=== PATIENT | male | born 1990 | race Caucasian/White ===

== ENCOUNTER 2019-04-17 18:51 | Emergency (ER) | payer SELFPAY ==
[2019-04-17 19:01] VITALS: BP 146/90; PULSE 96; RESP 16; TEMP 36.4; O2SAT 98
--- NOTE | 2019-04-17 19:01 | ED.GENADULT ---
HPI - General Adult General Chief complaint: Skin/Abscess/Foreign Body Stated complaint: cist lanced Time Seen by Provider: 04/17/19 19:08 Source: patient and RN notes reviewed Mode of arrival: ambulatory Limitations: no limitations History of Present Illness HPI narrative: This is a 28 years old male presents to the office for an evaluation of infected cyst. States, he has history of pilonidal cyst in past; began about 6-7years ago. He got the cyst removed completely and the he develops a new one about several months ago; where he went to ER to get it drainage; but he never follow up to get it removed completed. About a couple days ago, he noticed that his tail is getting sore/irritate when he sits or lies on his back. So, he asked his to check; she thought he might need to be drainage again. Denies history of MRSA. Related Data Allergies Allergy/AdvReac Type Severity Reaction Status Date / Time No Known Allergies Allergy Verified 04/17/19 19:06 Review of Systems Review of Systems: Narrative: CONSTITUTIONAL: Denies fever or feeling ill. CARDIOVASCULAR: Denies chest pain RESPIRATORY: Denies dyspnea GASTROINTESTINAL: Denies abdominal pain, nausea, vomiting SKIN: reports painful lesion on his tailbone MUSCULOSKELETAL: Denies tailbone injury/trauma. [facility] Social History Social History (Updated 04/17/19 @ 19:35 by MARISOL Greene) Smoking status: Current every day smoker Comments At time of signature, I agree with nursing past medical, surgical, social and family history. There is no relevant family history pertinent to the presenting complaint. Exam Narrative: Exam Narrative: GENERAL: This is a well-nourished, well-developed patient, in no apparent distress. CARDIOVASCULAR: Regular rate and rhythm without murmurs, gallops, or rubs. RESPIRATORY: Clear to auscultation. Breath sounds equal bilaterally. No wheezes, rales, or rhonchi. GASTROINTESTINAL: Abdomen soft, non-tender, nondistended. Bowel sounds are active. No guarding. SKIN:exam field mechanic by nurse jermain Villarreal noted localize cystic lesion with induration ~3cm round without erythema; however there is tenderness to palpation. Skin intact; no opening or discharge NEURO: awake, alert, and oriented to person, place and time. There were no obvious focal neurologic abnormalities. Steady gait [place] Coma Scale Eye Opening: Spontaneous 4 [place] Coma Scale Motor: Obeys Commands 6 [place] Coma Scale Verbal: Oriented 5 Medical Decision Making MDM Narrative Medical decision making narrative: Cyst is not ready to be drained at this time discussed with patient's and . Discussed etiology and management of his condition, answered all the question. Differential Diagnosis Differential Diagnosis: perianal fistula, perianal abscess, hidradenitisi suppurative, infected sebaceous cyst Medical Records Medical records reviewed: Yes I reviewed the patient's medical records. Critical Care Time Critical Care Time Critical Care Time: No Discharge Plan Discharge Clinical Impression: Pilonidal cyst, Elevated BP without diagnosis of hypertension Patient Disposition: Home, Self-Care Condition: Stable Instructions: Antibiotic Form, Pilonidal Cyst (ED) Additional Instructions: Take antibiotic until it is gone Warm compress on affected area to promote healing Do not squeeze or touch affected area as it may worsening the symptoms Recommend ibuprofen as needed for pain/inflammation Call the surgeon Saturday to schedule an appointment to removal of your cyst to prevent the recurrent of this condition Prescriptions: New amoxicillin-pot clavulanate [Augmentin] 500-125 mg tablet 1 tablet PO TID 7 Days Qty: 21 RF: 0 Follow-up/Referrals: Betito Shabazz MD [Physician] - 2 Weeks (Pilonidal cyst) UNKNOWN,DOCTOR [Primary Care Provider] - Time of Disposition: 19:30
== END 2019-04-17 19:30 | disposition home or self-care (01) ==
PROVIDERS: Emergency Provider Nurse Practitioner
DX: L05.91 Pilonidal cyst without abscess (principal); R03.0 Elevated blood-pressure reading, without diagnosis of hypertension
CPT/HCPCS: 99203; G0463

== ENCOUNTER 2023-09-24 16:50 | Emergency (ER) | payer OTHER, SELFPAY ==
[2023-09-24] VITALS (7 sets, daily range): BP systolic 126–145; BP diastolic 57–97; PULSE 74–98; RESP 13–20; TEMP 36.8; O2SAT 94–99
--- NOTE | ~2023-09-24 | XR_ITS ---
EXAMINATION: XR chest 2V Exam Date/Time: 09/24/2023 17:13 CDT HISTORY: cp Comparison: None. RESULT: Lines, tubes, and devices: None. Lungs and pleura: Clear. Cardiomediastinal silhouette: Normal. Other: No acute osseous or upper abdominal finding. IMPRESSION: No acute cardiopulmonary process. Reviewed, dictated and finalized at location K.
--- NOTE | 2023-09-24 17:01 | ECG_ITS ---
Test Date: 2023-09-24 17:01:30 Measurements Intervals [place] Rate: 91 P: 35 [place]: 145 QRS: 33 QRSD: 93 T: 7 QT: 334 QTc: 411 Interpretive Statements SINUS RHYTHM DELAYED PRECORDIAL R/S TRANSITION CONSIDER INFERIOR INFARCT, AGE INDETERMINATE ABNORMAL ECG No previous ECG available for comparison Electronically Signed On 09-26-2023 13:01:44 CDT by Dino Zheng D.O.
[2023-09-24 17:13] LABS: Basophils Absolute Auto 0.1 K/mm3 (0.0-0.1); Basophils Percent Auto 0.6 % (0.2-1.2); Eosinophils Absolute Auto 0.1 K/mm3 (0-0.3); Eosinophils Percent Auto 0.9 % (0-4.4); Hematocrit 47.1 % (42.0-52.0); Hemoglobin 16.4 g/dL (14.0-18.0); Immature Granulocyte Absolute 0.02 K/mm3 (0.00-0.031); Immature Granulocyte Percent A 0.2 % (0-0.5); Lymphocytes Absolute Auto 1.66 K/mm3 (0.9-3.2); Lymphocytes Percent Auto 20.3 % (18.3-44.2); Mean Corpuscular HGB Conc 34.8 g/dl (32-36); Mean Corpuscular Hemoglobin 30.8 pg (26-34); Mean Corpuscular Volume 88.4 fl (80-100); Mean Platelet Volume 10.1 fl (7.4-10.4); Monocytes Absolute Auto 0.7 K/mm3 (0.1-0.6); Neutrophils Absolute Auto 5.7 K/mm3 (1.3-6.7); Platelet Count Result 233 k/mm3 (150-375); Red Blood Count 5.33 M/mm3 (4.6-6.20); Red Cell Distribution Width 12.4 % (11.5-14.5); White Blood Count 8.2 K/mm3 (4.5-10.0)
[2023-09-24 17:26] LABS: Alanine Aminotransferase 150 U/L (6-50); Albumin Level 5.1 g/dL (3.5-5.1); Alkaline Phosphatase 60 U/L (38-126); Anion Gap 11 mmol/L (4-12); Aspartate Amino Transferase 57 U/L (17-59); Bilirubin,Total 0.7 mg/dL (0.2-1.3); Blood Urea Nitrogen 13 mg/dL (9-20); Calcium 9.2 mg/dL (8.4-10.2); Carbon Dioxide 32 mmol/L (22-30); Chloride 99 mmol/L (98-107); Estimated CRCL calculation 85 ml/min; Estimated Glomerular Filt Rate > 60; Glucose 88 mg/dL (65-110); Lipase 88 U/L (23-300); Potassium 3.8 mmol/L (3.4-5.0); Sodium 142 mmol/L (137-145)
[2023-09-24 17:29] LABS: Prothrombin Time 13.8 Seconds (11.1-14.7)
[2023-09-24 17:30] LABS: Partial Thromboplastin Time 27.7 Seconds (22.3-36.8)
[2023-09-24 17:37] LABS: Troponin I < 0.012 ng/mL (0.000-0.034)
[2023-09-24] MEDS: ASPIRIN 81 MG CHEWABLE TABLET 324 MG PO (18:14)
--- NOTE | 2023-09-24 19:05 | ED.CHESTPAIN ---
HPI - Chest Pain General Chief Complaint: Chest Pain Stated Complaint: chest pain Time Seen by Provider: 09/24/23 17:15 History of Present Illness HPI narrative: Patient is a 33-year-old male presenting with chest pain. 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 It was associated with tingling and lightheadedness. States that he felt overwhelmingly fatigued and like he was about to fall asleep. States that the symptoms have since resolved. Patient's is at bedside. States that they are currently going through separation and there are a lot of stressors going on. Patient states that he has not been eating or drinking much due to the stress. Denies any infectious symptoms. No further complaints. Related Data Allergies Allergy/AdvReac Type Severity Reaction Status Date / Time No Known Allergies Allergy Verified 09/24/23 17:00 Review of Systems Review of Systems: All systems reviewed & are unremarkable except as noted in HPI and below PMFSH Social History Social History Smoking status: Current every day smoker Exam Narrative: GENERAL: Well-appearing and in no acute distress. HEAD: Normocephalic, atraumatic. EYES: PERRLA and EOMI. ENT: Mucous membranes moist. NECK: Supple. CHEST: Clear to auscultation. No respiratory distress. HEART: Regular rate and rhythm ABDOMEN: Soft, nontender, nondistended EXTREMITIES: Normal range of motion. SKIN: Warm, dry, no rash. NEURO: No focal deficits. Alert and oriented x3. PSYCH: Normal mood and affect. Course Vital Signs Vital signs: Vital Signs Temperature 98.2 F 09/24/23 16:57 Pulse Rate 87 09/24/23 16:57 Respiratory Rate 16 09/24/23 16:57 Pulse Oximetry 99 09/24/23 16:57 Temperature 98.2 F 09/24/23 16:57 Pulse Rate 74 09/24/23 19:24 Respiratory Rate 17 09/24/23 19:24 Blood Pressure 126/57 L 09/24/23 19:24 Pulse Oximetry 99 09/24/23 19:24 Oxygen Delivery Room Air 09/24/23 17:00 MDM - Chest Pain MDM Narrative Medical decision making narrative: 33-year-old male presenting with left-sided chest pain. Patient is slightly hypertensive, wrist vitals are within normal limits. Exam is unremarkable. Troponin undetectable x2. Chest x-ray without acute abnormalities. Remainder blood work is unremarkable. Feel patient is safe for outpatient management. He is comfortable with this plan. Recommend close PCP follow-up. Appropriate return precautions given. Discharged in stable condition. Lab Data 09/24/23 17:06 09/24/23 17:06 Labs: Lab Results 09/24/23 09/24/23 Range/Units 17:06 20:26 WBC 8.2 (4.5-10.0) K/mm3 RBC 5.33 (4.6-6.20) M/mm3 Hgb 16.4 (14.0-18.0) g/dL Hct 47.1 (42.0-52.0) % MCV 88.4 (80-100) fl MCH 30.8 (26-34) pg MCHC 34.8 (32-36) g/dl RDW 12.4 (11.5-14.5) % Plt Count 233 (150-375) k/mm3 MPV 10.1 (7.4-10.4) fl Immature Gran % (Auto) 0.2 (0-0.5) % Neut % (Auto) 69.0 (45.5-73.1) % Lymph % (Auto) 20.3 (18.3-44.2) % [place] % (Auto) 9.0 H (2.6-8.5) % Eos % (Auto) 0.9 (0-4.4) % Baso % (Auto) 0.6 (0.2-1.2) % Lymph # (Auto) 1.66 (0.9-3.2) K/mm3 [place] # (Auto) 0.7 H (0.1-0.6) K/mm3 Eos # (Auto) 0.1 (0-0.3) K/mm3 Baso # (Auto) 0.1 (0.0-0.1) K/mm3 Abs Immat Gran (auto) 0.02 (0.00-0.031) K/mm3 Absolute Neuts (auto) 5.7 (1.3-6.7) K/mm3 Absolute Nucleated RBC 0.000 (0.0-0.012) K/mm3 Nucleated RBC % 0.0 (0.0-0.2) % PT 13.8 (11.1-14.7) Seconds INR 1.0 APTT 27.7 (22.3-36.8) Seconds Sodium 142 (137-145) mmol/L Potassium 3.8 (3.4-5.0) mmol/L Chloride 99 (98-107) mmol/L Carbon Dioxide 32 H (22-30) mmol/L Anion Gap 11 (4-12) mmol/L BUN 13 (9-20) mg/dL Creatinine 1.30 (0.7-1.3) mg/dL Estim Creat Clear Calc 85 ml/min Estimated GFR > 60
[2023-09-24] MEDS: SODIUM CHLORIDE 0.9% IV 1,000 ML 999 ML IV CONT (19:40)
--- NOTE | 2023-09-24 20:27 | ECG_ITS ---
Test Date: 2023-09-24 20:27:23 Measurements Intervals [place] Rate: 61 P: 5 [place]: 127 QRS: 22 QRSD: 95 T: 1 QT: 375 QTc: 378 Interpretive Statements SINUS RHYTHM WITH SINUS ARRHYTHMIA INFERIOR INFARCT, AGE INDETERMINATE BASELINE ARTIFACT- I, II, III, AVR, AVL, AVF ABNORMAL ECG COMPARED WITH PRIOR ECG 09-24-2023 17:01 NO SIGNIFICANT CHANGE Electronically Signed On 09-25-2023 06:33:06 CDT by Dino Zheng D.O.
[2023-09-24 21:06] LABS: Troponin I < 0.012 ng/mL (0.000-0.034)
== END 2023-09-24 21:45 | disposition home or self-care (01) ==
PROVIDERS: Student in an Organized Health Care Education/Training Program; Emergency Provider Emergency Medicine
DX: R07.89 Other chest pain (principal); R42 Dizziness and giddiness; F17.200 Nicotine dependence, unspecified, uncomplicated
CPT/HCPCS: 36415; 71046; 80053; 83690; 84484; 85025; 85610; 85730; 93005; 96360; 99284; A9270; J7030